=== PATIENT | female | born 1935 | race Caucasian/White ===

== ENCOUNTER 2018-08-23 13:51 | Inpatient (IN) | payer MEDICARE, OTHER ==
[~2018-08-23] VITALS: Ht 170.2 cm; Wt 47.0 kg
[2018-08-23] MEDS ORDERED: diltiazem 5mg/ml 5ml inj. IV ONE (14:05)
[2018-08-23 14:24] LABS: BASOPHILS % (AUTO) 0.5 % (0-1); EOSINOPHILS % (AUTO) 0.3 % (0-6); HEMATOCRIT 43.1 % (35.0-45.0); HEMOGLOBIN 14.6 g/dl (12.0-16.0); LYMPHOCYTES # (AUTO) 0.7 X10'3 (1.1-4.8); LYMPHOCYTES % (AUTO) 7.9 % (21-51); MEAN CORPUSCULAR HEMOGLOBIN 28.6 PG (27.0-31.0); MEAN CORPUSCULAR HGB CONC 33.8 g/dL (33.0-36.5); MEAN CORPUSCULAR VOLUME 84.6 FL (78-98); MEAN PLATELET VOLUME 8.3 FL (7.4-10.4); MONOCYTES # (AUTO) 0.8 X10'3 (0-0.9); MONOCYTES % (AUTO) 8.7 % (2-12); NEUTROPHILS # (AUTO) 7.7 X10'3 (1.8-7.7); NEUTROPHILS % (AUTO) 82.6 % (42-75); PLATELET COUNT 206 X10'3 (140-440); RED CELL DISTRIBUTION WIDTH 14.4 % (11.5-14.5); WHITE BLOOD COUNT 9.4 X10'3 (4.5-11.0)
[2018-08-23 14:36] LABS: ALANINE AMINOTRANSFERASE 20 U/L (12-78); ALBUMIN 3.3 G/DL (3.4-5.0); ALBUMIN/GLOBULIN RATIO 0.8 (1.1-1.5); ALKALINE PHOSPHATASE 116 IU/L (46-116); ANION GAP 5 (8-16); ASPARTATE AMINO TRANSFERASE 16 U/L (10-37); BILIRUBIN,TOTAL 0.4 MG/DL (0.1-1.0); BLOOD UREA NITROGEN 7 MG/DL (7-18); BUN/CREATININE RATIO 9.6 (6.6-38.0); CALCIUM 8.8 MG/DL (8.5-10.1); CHLORIDE 103 MMOL/L (99-107); CREATININE 0.73 MG/DL (0.40-0.90); GLUCOSE 97 MG/DL (70-104); POTASSIUM 4.2 MMOL/L (3.5-5.1); SODIUM 139 MMOL/L (135-145); TOTAL CARBON DIOXIDE 30.7 MMOL/L (24-32); TOTAL PROTEIN 7.2 G/DL (6.4-8.2); eGFR 77 ML/MIN
[2018-08-23 14:39] LABS: INR 1.1 INR
[2018-08-23] MEDS ORDERED: ipratropium/albuterol 3ml nebule NEB ONE (14:40)
[2018-08-23] MEDS ORDERED: methylPREDNISolone sod succ 125mg/2ml vial IV ONE (14:40)
[2018-08-23] MEDS ORDERED: diltiazem-D5W 125mg/125ml 125 ML IV SCH (14:45)
[2018-08-23] MEDS ORDERED: LISI-600 PO (15:02)
[2018-08-23] MEDS ORDERED: LOVA40TA2 PO (15:02)
[2018-08-23] MEDS ORDERED: ASPI81TA52 PO (15:02)
--- NOTE | 2018-08-23 15:20 | NUR ---
PER FREDERICK HEREDIA.
[2018-08-23] MEDS ORDERED: acetaminophen 325mg tablet PO PRN (15:25)
[2018-08-23] MEDS ORDERED: potassium Cl 40MEQ/NS 500ml 500 ML IV PRN ×2 (15:25)
[2018-08-23] MEDS ORDERED: magnesium hydroxide 30ml (MOM) UD suspension PO PRN (15:25)
[2018-08-23] MEDS ORDERED: magnesium 4gm in 100ml NS 100 ML IV PRN (15:25)
[2018-08-23] MEDS ORDERED: ondansetron/PF 4mg/2ml inj IV PRN (15:25)
[2018-08-23] MEDS ORDERED: potassium Cl 20 mEq SR tablet PO PRN ×2 (15:25)
[2018-08-23] MEDS ORDERED: magnesium Cl slow-release 64mg tablet PO PRN (15:25)
[2018-08-23] MEDS ORDERED: mag hydrox/Alum hydrox/simeth 30ml oral suspension PO PRN (15:25)
[2018-08-23] MEDS ORDERED: magnesium 2GM in 50ml NS 50 ML IV PRN (15:25)
[2018-08-23] MEDS ORDERED: bisacodyl 10mg suppository rectal RC PRN (15:25)
[2018-08-23] MEDS: ipratropium/albuterol 3ml nebule NEB SCH ×3 (15:30→23:04)
--- NOTE | 2018-08-23 15:53 | NUR ---
Patient in room . I have received report from ROSAURA TAPIA and had the opportunity to ask questions and assume patient care.
--- NOTE | 2018-08-23 16:43 | NUR ---
PT ARRIVED ON UNIT A LITTLE AFTER 1600. PLACED IN ROOM 3012B. ORIENTED TO ROOM.
[2018-08-23 17:09] VITALS: BP 134/81
[2018-08-23] MEDS: sodium chloride 0.45% 1,000 ML IV SCH (17:40)
[2018-08-23] MEDS: CefTRIAXone/D5W-Rocephin 1gm 50 ML IV SCH (17:41)
[2018-08-23] MEDS: diltiazem CD 120mg capsule (once-daily) PO SCH (17:41)
[2018-08-23 17:55] VITALS: BP 115/71
[2018-08-23 18:00] VITALS: BP 138/74
--- NOTE | 2018-08-23 18:00 | NUR ---
Patient in room PCU 3012. I have received report from Ron TAPIA and had the opportunity to ask questions and assume patient care.
--- NOTE | 2018-08-23 18:30 | NUR ---
Problems reprioritized. Patient report given, questions answered & plan of care reviewed with KEYSHAWN TAPIA.
[2018-08-23] MEDS: docusate sod 100mg capsule PO SCH ×2 (20:00→21:03)
[2018-08-23] MEDS: methylPREDNISolone sod succ 125mg/2ml vial IV SCH (20:53)
[2018-08-23] MEDS ORDERED: non-formulary drug (Lovastatin 1 TAB) PO SCH (21:00)
[2018-08-23] MEDS ORDERED: atorvastatin 10mg tablet PO SCH (21:00)
[2018-08-23 22:00] VITALS: BP 149/62
[2018-08-24 02:00] VITALS: BP 119/74
[2018-08-24] MEDS: methylPREDNISolone sod succ 125mg/2ml vial IV SCH ×2 (02:45→07:30)
[2018-08-24] MEDS: ipratropium/albuterol 3ml nebule NEB SCH ×2 (02:45→07:00)
[2018-08-24 05:09] LABS: ALBUMIN 2.8 G/DL (3.4-5.0); ANION GAP 7 (8-16); BLOOD UREA NITROGEN 8 MG/DL (7-18); BUN/CREATININE RATIO 10.7 (6.6-38.0); CALCIUM 8.9 MG/DL (8.5-10.1); CHLORIDE 105 MMOL/L (99-107); CREATININE 0.75 MG/DL (0.40-0.90); GLUCOSE 166 MG/DL (70-104); POTASSIUM 4.5 MMOL/L (3.5-5.1); SODIUM 140 MMOL/L (135-145); TOTAL CARBON DIOXIDE 28.2 MMOL/L (24-32); eGFR 74 ML/MIN
[2018-08-24 06:00] VITALS: BP 116/68
--- NOTE | 2018-08-24 06:30 | NUR ---
Problems reprioritized. Patient report given, questions answered & plan of care reviewed with Maldonado TAPIA.
[2018-08-24] MEDS: CefTRIAXone/D5W-Rocephin 1gm 50 ML IV SCH (07:22)
[2018-08-24] MEDS: sodium chloride 0.45% 1,000 ML IV SCH (07:27)
[2018-08-24] MEDS: diltiazem CD 120mg capsule (once-daily) PO SCH (07:29)
[2018-08-24] MEDS ORDERED: pantoprazole 40mg Tablet.DR PO SCH (07:30)
[2018-08-24] MEDS ORDERED: lisinopril 20mg tablet PO SCH (08:00)
[2018-08-24] MEDS ORDERED: K and/or MAG REPLACEMENT MC SCH (08:00)
[2018-08-24] MEDS ORDERED: aspirin 81mg tablet.DR PO SCH (08:00)
[2018-08-24] MEDS ORDERED: enoxaparin 40mg/0.4ml syringe SUBCUT SCH (08:00)
[2018-08-24 11:00] VITALS: BP 110/70
[2018-08-24] MEDS ORDERED: PANT40TA4 PO (13:26)
[2018-08-24] MEDS ORDERED: CEPH500C5 PO (13:26)
[2018-08-24] MEDS ORDERED: CARCD120C PO (13:26)
[2018-08-24] MEDS ORDERED: PRED10TA23 PO (13:26)
[2018-08-24] MEDS ORDERED: ALBU6.7H INH (13:26)
== END 2018-08-24 15:15 | disposition home or self-care (01) | DRG 189 ==
LOC: ER 13:52 → PCU 3S 16:03 → CMPBEDREQ 19:31
PROVIDERS: ADMIT Internal Medicine; ATTEND Internal Medicine
DX: J96.00 Acute respiratory failure, unspecified whether with hypoxia or hypercapnia (principal); J44.1 Chronic obstructive pulmonary disease with (acute) exacerbation; I47.1 Supraventricular tachycardia; J44.0 Chronic obstructive pulmonary disease with (acute) lower respiratory infection; I48.91 Unspecified atrial fibrillation; E78.5 Hyperlipidemia, unspecified; I10 Essential (primary) hypertension; J20.9 Acute bronchitis, unspecified; Z79.82 Long term (current) use of aspirin; Z86.73 Personal history of transient ischemic attack (TIA), and cerebral infarction without residual deficits; Z87.891 Personal history of nicotine dependence
CPT/HCPCS: 36415; 71045; 80048; 80053; 83735; 83880; 84484; 85025; 85610; 87070; 93005; 94640; 94760; 96374; 96375; 99285; G0378; J0696; J1650; J2930; J3490

== ENCOUNTER 2019-05-24 09:41 | Inpatient (IN) | payer MEDICARE ==
[~2019-05-24] VITALS: Ht 167.6 cm; Wt 45.5 kg
[~2019-05-24 09:41] MED LIST: ALBU6.7H9 INH; ASPI81TA52 PO; CARCD120C PO; LISI-600 PO; LOVA40TA2 PO; PANT40TA4 PO
--- NOTE | 2019-05-24 09:53 | NUR ---
CHANGED TO SMALL ADULT CUFF
[2019-05-24] MEDS ORDERED: CefTRIAXone 2gm/D5W 50ml 50 ML IV ONE ×2 (10:00→11:20)
[2019-05-24] MEDS ORDERED: normal saline 1000ML IV soln IV ONE (10:00)
[2019-05-24 10:29] LABS: BASOPHILS % (AUTO) 0.6 % (0-1); EOSINOPHILS # (AUTO) 0.1 X10'3 (0-0.9); EOSINOPHILS % (AUTO) 1.2 % (0-6); HEMATOCRIT 45.4 % (35.0-45.0); HEMOGLOBIN 15.5 g/dl (12.0-16.0); LYMPHOCYTES # (AUTO) 0.6 X10'3 (1.1-4.8); LYMPHOCYTES % (AUTO) 9.7 % (21-51); MEAN CORPUSCULAR HEMOGLOBIN 29.4 PG (27.0-31.0); MEAN CORPUSCULAR HGB CONC 34.2 g/dL (33.0-36.5); MEAN CORPUSCULAR VOLUME 85.8 FL (78-98); MEAN PLATELET VOLUME 8.6 FL (7.4-10.4); MONOCYTES # (AUTO) 0.5 X10'3 (0-0.9); MONOCYTES % (AUTO) 8.7 % (2-12); NEUTROPHILS # (AUTO) 4.6 X10'3 (1.8-7.7); NEUTROPHILS % (AUTO) 79.8 % (42-75); PLATELET COUNT 116 X10'3 (140-440); RED BLOOD COUNT 5.29 X10'6 (4.20-5.60); RED CELL DISTRIBUTION WIDTH 14.4 % (11.5-14.5); WHITE BLOOD COUNT 5.8 X10'3 (4.5-11.0)
[2019-05-24] MEDS ORDERED: ipratropium/albuterol 3ml nebule NEB ONE (10:35)
[2019-05-24] MEDS ORDERED: methylPREDNISolone sod succ 125mg/2ml vial IV ONE (10:35)
[2019-05-24 10:41] LABS: PARTIAL THROMBOPLASTIN TIME 27 SECONDS (22-32)
[2019-05-24 10:44] LABS: ANION GAP 7 (8-16); BLOOD UREA NITROGEN 20 MG/DL (7-18); CHLORIDE 104 MMOL/L (99-107); GLUCOSE 110 MG/DL (70-104); POTASSIUM 4.1 MMOL/L (3.5-5.1); SODIUM 141 MMOL/L (135-145); TOTAL CARBON DIOXIDE 30.1 MMOL/L (24-32)
[2019-05-24 10:45] LABS: ALANINE AMINOTRANSFERASE 14 U/L (12-78); ALBUMIN/GLOBULIN RATIO 1.2 (1.1-1.5); ALKALINE PHOSPHATASE 87 IU/L (46-116); ASPARTATE AMINO TRANSFERASE 10 U/L (10-37); BILIRUBIN,TOTAL 0.7 MG/DL (0.1-1.0); CALCIUM 8.8 MG/DL (8.5-10.1); TOTAL PROTEIN 7.3 G/DL (6.4-8.2); eGFR 53 ML/MIN
[2019-05-24] MEDS ORDERED: azithromycin/NS 500mg/250ml 250 ML IV ONE (11:20)
[2019-05-24 12:42] LABS: CLARITY,URINE CLEAR (Clear); COLOR,URINE STRAW (Yellow); GLUCOSE, URINE NEGATIVE (Neg); KETONES,URINE NEGATIVE (Neg); LEUKOCYTE ESTERASE ,URINE SMALL (Neg); NITRITES, URINE NEGATIVE (Neg); OCCULT BLOOD,URINE LARGE (Neg); PH,URINE 5.5 (4.8-8.0); PROTEIN,URINE NEGATIVE (Neg); UROBILINOGEN,URINE 0.2 E.U/dL (0.2-1.0)
[2019-05-24 12:43] LABS: UA COLLECTION TYPE OTHER
[2019-05-24 12:52] LABS: SQUAMOUS EPITHELIAL CELL,UR MODERATE /LPF (FEW)
[2019-05-24 12:53] LABS: BACTERIA,URINE 2+ /HPF (Neg); RBC,URINE 20-50 /HPF (0-2)
[2019-05-24] MEDS ORDERED: potassium Cl 20 mEq SR tablet PO PRN ×2 (13:15)
[2019-05-24] MEDS ORDERED: acetaminophen 325mg tablet PO PRN ×2 (13:15→21:25)
[2019-05-24] MEDS ORDERED: nicotine 14mg patch - 24hr TD ONE (13:15)
[2019-05-24] MEDS ORDERED: mag hydrox/Alum hydrox/simeth 30ml oral suspension PO PRN (13:15)
[2019-05-24] MEDS ORDERED: magnesium Cl slow-release 64mg tablet PO PRN (13:15)
[2019-05-24] MEDS ORDERED: magnesium 2GM in 50ml NS 50 ML IV PRN (13:15)
[2019-05-24] MEDS ORDERED: ondansetron/PF 4mg/2ml inj IV PRN (13:15)
[2019-05-24] MEDS ORDERED: potassium CL 10mEq/100ml bag 100 ML IV PRN ×2 (13:15)
[2019-05-24] MEDS ORDERED: ipratropium/albuterol 3ml nebule NEB PRN (13:15)
[2019-05-24] MEDS ORDERED: docusate sod 100mg capsule PO PRN (13:15)
[2019-05-24] MEDS ORDERED: magnesium 4gm in 100ml NS 100 ML IV PRN (13:15)
[2019-05-24] MEDS ORDERED: ALBU8.5H8 IH (13:25)
[2019-05-24] MEDS: normal saline 1000ml 1,000 ML IV SCH ×2 (14:48→21:00)
[2019-05-24] MEDS: methylPREDNISolone sod succ 125mg/2ml vial IV SCH (16:35)
[2019-05-24] MEDS: ipratropium/albuterol 3ml nebule NEB SCH ×2 (16:44→20:57)
--- NOTE | 2019-05-24 18:55 | NUR ---
Patient in room [facility]. I have received report from Shaheed TAPIA and had the opportunity to ask questions and assume patient care.
--- NOTE | 2019-05-24 19:10 | NUR ---
Patient arrived to floor via gurney from ER accompanied by her family. Pt. has her own walker and ambulated to B bed with SBA. Pt. in no respiratory distress, currently on 2.5L o2. Dinner tray provided at this time.
[2019-05-24 20:00] VITALS: BP 163/121
[2019-05-24] MEDS: K and/or MAG REPLACEMENT MC SCH (20:00)
--- NOTE | 2019-05-24 21:24 | NUR ---
Called MD for order for pain. Order received :tylenol 650mg prn q6 mild pain
[2019-05-25] VITALS: BP 150/74
[2019-05-25] MEDS: methylPREDNISolone sod succ 125mg/2ml vial IV SCH ×3 (00:36→16:12)
[2019-05-25 04:49] LABS: BASOPHILS % (AUTO) 0.1 % (0-1); EOSINOPHILS % (AUTO) 0 % (0-6); HEMATOCRIT 37.6 % (35.0-45.0); HEMOGLOBIN 12.8 g/dl (12.0-16.0); LYMPHOCYTES # (AUTO) 0.1 X10'3 (1.1-4.8); LYMPHOCYTES % (AUTO) 3.2 % (21-51); MEAN CORPUSCULAR HEMOGLOBIN 29.3 PG (27.0-31.0); MEAN CORPUSCULAR HGB CONC 34.2 g/dL (33.0-36.5); MEAN CORPUSCULAR VOLUME 85.5 FL (78-98); MEAN PLATELET VOLUME 8.9 FL (7.4-10.4); MONOCYTES # (AUTO) 0.2 X10'3 (0-0.9); MONOCYTES % (AUTO) 4.5 % (2-12); NEUTROPHILS # (AUTO) 4.2 X10'3 (1.8-7.7); NEUTROPHILS % (AUTO) 92.2 % (42-75); PLATELET COUNT 102 X10'3 (140-440); RED BLOOD COUNT 4.39 X10'6 (4.20-5.60); WHITE BLOOD COUNT 4.6 X10'3 (4.5-11.0)
[2019-05-25 05:00] LABS: ALANINE AMINOTRANSFERASE 22 U/L (12-78); ALBUMIN 3.1 G/DL (3.4-5.0); ALBUMIN/GLOBULIN RATIO 1.1 (1.1-1.5); ALKALINE PHOSPHATASE 81 IU/L (46-116); ANION GAP 8 (8-16); ASPARTATE AMINO TRANSFERASE 20 U/L (10-37); BILIRUBIN,TOTAL 0.3 MG/DL (0.1-1.0); BLOOD UREA NITROGEN 16 MG/DL (7-18); BUN/CREATININE RATIO 19.3 (6.6-38.0); CALCIUM 8.3 MG/DL (8.5-10.1); CHLORIDE 110 MMOL/L (99-107); CREATININE 0.83 MG/DL (0.40-0.90); GLUCOSE 153 MG/DL (70-104); POTASSIUM 4.1 MMOL/L (3.5-5.1); SODIUM 143 MMOL/L (135-145); TOTAL CARBON DIOXIDE 24.7 MMOL/L (24-32); eGFR 66 ML/MIN
--- NOTE | 2019-05-25 05:27 | NUR ---
checked pulse ox. Patient is at 98 on 1L. took patient off of oxygen as order is for 88-90%,Patient shows no s/s of any respiratory distress at this time. Addendum: 05/25/19 at 0529 by Tonya Marie RN Amended: Links added.
--- NOTE | 2019-05-25 06:30 | NUR ---
Problems reprioritized. Patient report given, questions answered & plan of care reviewed with Vivienne TAPIA.
[2019-05-25 07:00] VITALS: BP 161/70
[2019-05-25] MEDS: atorvastatin 10mg tablet PO SCH (07:41)
[2019-05-25] MEDS: lisinopril 20mg tablet PO SCH (07:42)
[2019-05-25] MEDS: aspirin 81mg tablet.DR PO SCH (07:42)
[2019-05-25] MEDS: enoxaparin 40mg/0.4ml syringe SQ SCH (07:43)
[2019-05-25] MEDS: K and/or MAG REPLACEMENT MC SCH ×2 (07:46→20:00)
[2019-05-25] MEDS: ipratropium/albuterol 3ml nebule NEB SCH ×3 (09:07→20:28)
[2019-05-25] MEDS ORDERED: FLU VACC QS2019-20 36MOS UP/PF 60 MCG/0.5 ML SYRINGE IMVAC ONE (10:00)
[2019-05-25] MEDS: normal saline 1000ml 1,000 ML IV SCH ×2 (10:22→22:35)
--- NOTE | 2019-05-25 11:33 | NUR ---
Pt with low BMI of 16.2 using pt stated wt of 45.45 kg. Per wt hx pt with scaled weight of 47 kg in August of last year. Likely pt with chronically low weight. Pt denied wt loss or decreased appetite in malnutrition risk screen with RN. Pt currently on heart healthy diet documented with 75-100% PO intake meeting nutrient needs. Pt with no edema or significant decrease in muscle strength. Pt currently does not meet criteria for malnutrition. Will continue to follow. Addendum: 05/25/19 at [address] Amended: Links added.
[2019-05-25 12:21] VITALS: BP 144/60
--- NOTE | 2019-05-25 13:12 | NUR ---
ambulated patient per MD request. O2 sats dropped to 85 on room air. recovered quickly to 92% with 2L NC. MD at bedside, results shared with him.
--- NOTE | 2019-05-25 18:27 | NUR ---
Problems reprioritized. Patient report given, questions answered & plan of care reviewed with Karin RN.
[2019-05-25 19:30] VITALS: BP 168/75
[2019-05-25 21:45] VITALS: BP 174/54
[2019-05-25] MEDS: hydrALAZINE 20mg/ml inj. IV PRN (21:45)
[2019-05-26] VITALS: BP 130/50
[2019-05-26] MEDS: methylPREDNISolone sod succ 125mg/2ml vial IV SCH ×3 (00:11→17:00)
[2019-05-26 05:09] LABS: BASOPHILS % (AUTO) 0.1 % (0-1); EOSINOPHILS % (AUTO) 0 % (0-6); HEMATOCRIT 35.5 % (35.0-45.0); HEMOGLOBIN 12.2 g/dl (12.0-16.0); LYMPHOCYTES # (AUTO) 0.1 X10'3 (1.1-4.8); LYMPHOCYTES % (AUTO) 2.2 % (21-51); MEAN CORPUSCULAR HEMOGLOBIN 29.7 PG (27.0-31.0); MEAN CORPUSCULAR HGB CONC 34.4 g/dL (33.0-36.5); MEAN CORPUSCULAR VOLUME 86.3 FL (78-98); MEAN PLATELET VOLUME 9.2 FL (7.4-10.4); MONOCYTES # (AUTO) 0.3 X10'3 (0-0.9); MONOCYTES % (AUTO) 4.5 % (2-12); NEUTROPHILS # (AUTO) 5.3 X10'3 (1.8-7.7); NEUTROPHILS % (AUTO) 93.2 % (42-75); PLATELET COUNT 96 X10'3 (140-440); RED BLOOD COUNT 4.11 X10'6 (4.20-5.60); WHITE BLOOD COUNT 5.6 X10'3 (4.5-11.0)
[2019-05-26 05:39] LABS: ALANINE AMINOTRANSFERASE 56 U/L (12-78); ALBUMIN 3.1 G/DL (3.4-5.0); ALBUMIN/GLOBULIN RATIO 1.1 (1.1-1.5); ALKALINE PHOSPHATASE 76 IU/L (46-116); ANION GAP 9 (8-16); ASPARTATE AMINO TRANSFERASE 39 U/L (10-37); BILIRUBIN,TOTAL 0.2 MG/DL (0.1-1.0); BLOOD UREA NITROGEN 15 MG/DL (7-18); BUN/CREATININE RATIO 20.3 (6.6-38.0); CALCIUM 8.5 MG/DL (8.5-10.1); CHLORIDE 110 MMOL/L (99-107); CREATININE 0.74 MG/DL (0.40-0.90); GLUCOSE 134 MG/DL (70-104); MAGNESIUM 1.9 MG/DL (1.5-2.4); POTASSIUM 4.2 MMOL/L (3.5-5.1); SODIUM 144 MMOL/L (135-145); TOTAL CARBON DIOXIDE 25.2 MMOL/L (24-32); TOTAL PROTEIN 5.9 G/DL (6.4-8.2); eGFR 75 ML/MIN
[2019-05-26 07:30] VITALS: BP 145/67
[2019-05-26] MEDS: aspirin 81mg tablet.DR PO SCH (07:58)
[2019-05-26] MEDS: atorvastatin 10mg tablet PO SCH (07:58)
[2019-05-26] MEDS: lisinopril 20mg tablet PO SCH (07:59)
[2019-05-26] MEDS: enoxaparin 40mg/0.4ml syringe SQ SCH (08:00)
[2019-05-26] MEDS: K and/or MAG REPLACEMENT MC SCH ×2 (08:00→20:00)
[2019-05-26] MEDS: ipratropium/albuterol 3ml nebule NEB SCH ×3 (09:00→20:19)
[2019-05-26 11:00] VITALS: BP 193/95
--- NOTE | 2019-05-26 11:06 | NUR ---
O2 Sat at rest on room air:92% If below 89%: Recovery O2 Sat at rest on ___LPM:___%:___% via (mask/nasal cannula, etc..) No further documentation is necessary. If O2 Sat did not drop below 89% on room air,ambulate patient on room air. O2 Sat while ambulating on room air:85% Recovery O2 Sat while ambulating on 2LPM:94% No further documentation is necessary. If patient does not drop below 89% while ambulating, he/she does not qualify for home O2.
--- NOTE | 2019-05-26 11:08 | NUR ---
Note sent to Case Management Attn Gina 344B Jim Solitario qualified for home o2... template is in notes. thanks!
[2019-05-26 11:13] VITALS: BP 190/93
[2019-05-26] MEDS: hydrALAZINE 20mg/ml inj. IV PRN (11:13)
[2019-05-26 11:45] VITALS: BP 123/85
--- NOTE | 2019-05-26 12:07 | NUR ---
344B patient c/o SOB needs rt treatment stat! thanks
--- NOTE | 2019-05-26 12:17 | NUR ---
patient c/o SOB, o2 85% on 2L .. increased oxygen to 4LNC and patients sats were at 90%. RT and MD at bedside, patient receiving RT treatment and beginning to . patient calming down. Addendum: 05/26/19 at 1223 by Vivienne Del Toro RN patient c/o SOB, o2 85% on 2L .. increased oxygen to 4LNC and patients sats were at 90%. RT and MD at bedside, patient receiving RT treatment and beginning to calming down. Patient and her daughter at bedside agreed to transfer patient to a rehab instead of discharging home. No new orders received.
[2019-05-26] MEDS: levoFLOXACIN 750MG TABLET PO SCH (13:59)
[2019-05-26 18:00] VITALS: BP 152/84
--- NOTE | 2019-05-26 18:57 | NUR ---
Problems reprioritized. Patient report given, questions answered & plan of care reviewed with REGINA Zarate.
[2019-05-26] MEDS: guaiFENesin ER 600mg tablet PO SCH (19:38)
[2019-05-27] VITALS: BP 139/73
[2019-05-27] MEDS: methylPREDNISolone sod succ 125mg/2ml vial IV SCH ×2 (00:04→07:53)
[2019-05-27 04:13] LABS: BASOPHILS % (AUTO) 0.1 % (0-1); EOSINOPHILS % (AUTO) 0 % (0-6); HEMATOCRIT 37.1 % (35.0-45.0); HEMOGLOBIN 12.7 g/dl (12.0-16.0); LYMPHOCYTES # (AUTO) 0.1 X10'3 (1.1-4.8); MEAN CORPUSCULAR HEMOGLOBIN 29.5 PG (27.0-31.0); MEAN CORPUSCULAR HGB CONC 34.3 g/dL (33.0-36.5); MEAN CORPUSCULAR VOLUME 86.2 FL (78-98); MEAN PLATELET VOLUME 9.1 FL (7.4-10.4); MONOCYTES # (AUTO) 0.2 X10'3 (0-0.9); MONOCYTES % (AUTO) 4.4 % (2-12); NEUTROPHILS # (AUTO) 4.6 X10'3 (1.8-7.7); NEUTROPHILS % (AUTO) 93.5 % (42-75); PLATELET COUNT 109 X10'3 (140-440); RED BLOOD COUNT 4.31 X10'6 (4.20-5.60); RED CELL DISTRIBUTION WIDTH 14.2 % (11.5-14.5)
[2019-05-27 06:03] LABS: ALBUMIN 3.1 G/DL (3.4-5.0); ALBUMIN/GLOBULIN RATIO 1.1 (1.1-1.5); ANION GAP 7 (8-16); ASPARTATE AMINO TRANSFERASE 20 U/L (10-37); BILIRUBIN,TOTAL 0.3 MG/DL (0.1-1.0); BLOOD UREA NITROGEN 17 MG/DL (7-18); BUN/CREATININE RATIO 21.8 (6.6-38.0); CALCIUM 8.5 MG/DL (8.5-10.1); CHLORIDE 108 MMOL/L (99-107); CREATININE 0.78 MG/DL (0.40-0.90); GLUCOSE 127 MG/DL (70-104); MAGNESIUM 1.8 MG/DL (1.5-2.4); POTASSIUM 4.3 MMOL/L (3.5-5.1); SODIUM 144 MMOL/L (135-145); TOTAL CARBON DIOXIDE 28.9 MMOL/L (24-32); TOTAL PROTEIN 5.8 G/DL (6.4-8.2); eGFR 71 ML/MIN
[2019-05-27 06:04] LABS: ALANINE AMINOTRANSFERASE 46 U/L (12-78); ALKALINE PHOSPHATASE 73 IU/L (46-116)
--- NOTE | 2019-05-27 06:26 | NUR ---
Problems reprioritized. Patient report given, questions answered & plan of care reviewed with REGINA Mobley.
[2019-05-27 07:30] VITALS: BP 144/89
[2019-05-27] MEDS: guaiFENesin ER 600mg tablet PO SCH (07:52)
[2019-05-27] MEDS: atorvastatin 10mg tablet PO SCH (07:53)
[2019-05-27] MEDS: aspirin 81mg tablet.DR PO SCH (07:53)
[2019-05-27] MEDS: lisinopril 20mg tablet PO SCH (07:53)
[2019-05-27] MEDS: enoxaparin 40mg/0.4ml syringe SQ SCH (07:53)
[2019-05-27] MEDS: K and/or MAG REPLACEMENT MC SCH (07:56)
[2019-05-27] MEDS ORDERED: morphine 2 MG/ML inj. syringe IV PRN (08:10)
[2019-05-27] MEDS: ipratropium/albuterol 3ml nebule NEB SCH (08:29)
[2019-05-27] MEDS: levoFLOXACIN 750MG TABLET PO SCH (10:56)
[2019-05-27 12:24] VITALS: BP 151/92
--- NOTE | 2019-05-27 14:44 | NUR ---
Patient stable and appropriate for transfer to [facility] via [facility]. Report called to receiving facility. All belongings sent with patient including home walker. IV removed. patient left in wheelchair with 2LNC. Daughter aware of transfer and will be meeting patient at facility.
== END 2019-05-27 14:45 | DRG 189 ==
LOC: ER 09:41 → ED HOLD 13:11 → SUR 3N 19:06
PROVIDERS: ADMIT Family Medicine; ATTEND Internal Medicine
DX: J96.21 Acute and chronic respiratory failure with hypoxia (principal); J44.1 Chronic obstructive pulmonary disease with (acute) exacerbation; I48.92 Unspecified atrial flutter; N17.9 Acute kidney failure, unspecified; J44.0 Chronic obstructive pulmonary disease with (acute) lower respiratory infection; J20.9 Acute bronchitis, unspecified; D69.6 Thrombocytopenia, unspecified; E86.0 Dehydration; E78.5 Hyperlipidemia, unspecified; F17.210 Nicotine dependence, cigarettes, uncomplicated; I10 Essential (primary) hypertension; M54.5 Low back pain; I48.0 Paroxysmal atrial fibrillation; Z66 Do not resuscitate; Z79.82 Long term (current) use of aspirin; Z79.899 Other long term (current) drug therapy; Z86.73 Personal history of transient ischemic attack (TIA), and cerebral infarction without residual deficits; Z23 Encounter for immunization
CPT/HCPCS: 36415; 71045; 80053; 81001; 83605; 83735; 83880; 84145; 84484; 85025; 85610; 85730; 87040; 87081; 87088; 87502; 87503; 93005; 94640; 94760; G0378; J0360; J0456; J0696; J1650; J2930; J7030; Q2037